=== PATIENT | female | born 1980 | race Asian ===

== ENCOUNTER 2017-01-24 13:16 | Emergency (ER) | payer OTHER ==
[~2017-01-24] VITALS: Ht 165.1 cm; Wt 102.1 kg
[2017-01-24 13:20] VITALS: TEMP 98.2
[2017-01-24 14:07] LABS: PLATELET COUNT 272 K/uL (152-353)
[2017-01-24 14:11] LABS: POTASSIUM 3.5 mmol/L (3.6-5.2); SODIUM 140 mmol/L (136-145)
[2017-01-24 16:38] VITALS: BP 142/84
== END 2017-01-24 16:38 | disposition home or self-care (01) ==
LOC: ED 13:16
DX: B34.9 Viral infection, unspecified (principal)
CPT/HCPCS: 36415; 80053; 81000; 85027; 87081; 87804; 87880; 99284

== ENCOUNTER 2017-03-11 15:00 | Emergency (ER) | payer OTHER ==
[~2017-03-11] VITALS: Ht 165.1 cm; Wt 90.7 kg
[2017-03-11 15:14] VITALS: TEMP 98.2
[2017-03-11 16:27] VITALS: BP 151/90
== END 2017-03-11 17:08 | disposition home or self-care (01) ==
LOC: ED 15:00
DX: I10 Essential (primary) hypertension (principal); R51 Headache
CPT/HCPCS: 36415; 82947; 99283

== ENCOUNTER 2017-04-25 18:37 | Emergency (ER) | payer OTHER ==
[~2017-04-25] VITALS: Ht 165.1 cm; Wt 83.9 kg
[2017-04-25 19:12] LABS: PLATELET COUNT 235 K/uL (152-353)
[2017-04-25 21:39] VITALS: BP 133/72; TEMP 98.9
== END 2017-04-25 21:40 | disposition home or self-care (01) ==
LOC: ED 18:37
DX: E87.6 Hypokalemia (principal); R74.0 Nonspecific elevation of levels of transaminase and lactic acid dehydrogenase [LDH]
CPT/HCPCS: 36415; 80053; 81000; 82150; 83690; 85027; 86318; 87081; 87804; 87880; 93005; 99283

== ENCOUNTER 2017-09-11 12:34 | Outpatient (CLI) | payer OTHER | END 2017-09-11 22:19 | disposition home or self-care (01) | LOC: LAB 12:34 → LABW 12:34 → INF 12:34 | DX: E86.0 Dehydration (principal); R74.8 Abnormal levels of other serum enzymes | CPT/HCPCS: 36591; 80074; 96360; 96361 ==

== ENCOUNTER 2017-09-18 13:57 | Outpatient (CLI) | payer OTHER | END 2017-09-18 21:56 | disposition home or self-care (01) | LOC: INF 13:57 | DX: E86.0 Dehydration (principal) | CPT/HCPCS: 96360; 96361 ==

== ENCOUNTER 2017-11-06 07:52 | Day surgery (SDC) | payer OTHER ==
[~2017-11-06] VITALS: Ht 30.5 cm; Wt 0.5 kg
[2017-11-06 08:53] LABS: PLATELET COUNT 284 K/uL (152-353)
[2017-11-06 09:01] LABS: POTASSIUM 3.8 mmol/L (3.6-5.2)
== END 2017-11-06 13:17 | disposition home or self-care (01) ==
LOC: OR 07:52
PROVIDERS: Student in an Organized Health Care Education/Training Program
PROC: 0FT44ZZ Resection of Gallbladder, Percutaneous Endoscopic Approach (ICD-10-PCS; principal; 2017-11-06)
DX: K81.1 Chronic cholecystitis (principal); R16.0 Hepatomegaly, not elsewhere classified
CPT/HCPCS: 80053; 85027; J0132; J0330; J0690; J1100; J1170; J1885; J2001; J2250; J2405; J2704; J2710; J3010; J3490

== ENCOUNTER 2017-12-10 17:50 | Observation (INO) | payer OTHER ==
[~2017-12-10] VITALS: Ht 165.1 cm; Wt 69.5 kg
[2017-12-10 18:21] VITALS: BP 140/108; TEMP 98.5; Ht 165.1 cm; Wt 69.5 kg
[2017-12-10 18:36] LABS: PLATELET COUNT 182 K/uL (152-353)
[2017-12-10 18:52] LABS: POTASSIUM 3.4 mmol/L (3.6-5.2); SODIUM 138 mmol/L (136-145)
[2017-12-10 20:00] VITALS: BP 138/93; TEMP 98.8
[2017-12-11] VITALS: BP 142/97; TEMP 98.6
[2017-12-11 04:00] VITALS: BP 116/89; TEMP 98.8
[2017-12-11 08:00] VITALS: BP 115/79; TEMP 98.4
[2017-12-11 12:00] VITALS: BP 129/94; TEMP 98.4
[2017-12-11 15:12] LABS: PLATELET COUNT 186 K/uL (152-353)
[2017-12-11 15:24] LABS: POTASSIUM 4.8 mmol/L (3.6-5.2)
[2017-12-11 16:00] VITALS: BP 147/93; TEMP 98.3
[2017-12-11 20:00] VITALS: BP 120/89; TEMP 98.7
[2017-12-12] VITALS: BP 112/75; TEMP 98.2
[2017-12-12 04:00] VITALS: BP 121/85; TEMP 98.2
[2017-12-12 04:23] LABS: PLATELET COUNT 161 K/uL (152-353)
[2017-12-12 04:35] LABS: POTASSIUM 3.7 mmol/L (3.6-5.2)
[2017-12-12 08:00] VITALS: BP 105/76; TEMP 98.4
[2017-12-12 12:00] VITALS: BP 119/80; TEMP 98.6
== END 2017-12-12 16:38 | disposition home or self-care (01) ==
LOC: MED/SURG 17:50
PROVIDERS: ADMIT Family Medicine
DX: E86.0 Dehydration (principal); N30.01 Acute cystitis with hematuria; F10.10 Alcohol abuse, uncomplicated; F10.239 Alcohol dependence with withdrawal, unspecified; N39.0 Urinary tract infection, site not specified; F32.89 Other specified depressive episodes; K70.30 Alcoholic cirrhosis of liver without ascites
CPT/HCPCS: 36415; 80053; 81000; 82248; 82550; 83735; 84100; 84484; 85027; 87040; 87088; 93005; 96360; 96361; 96367; 96374; 96375; 99220; G0378; G0379; J0696; J2060; J2405

== ENCOUNTER 2020-08-03 11:41 | Emergency (ER) | payer OTHER ==
[~2020-08-03] VITALS: Ht 165.1 cm; Wt 69.4 kg
[2020-08-03 11:45] VITALS: TEMP 98.8
[2020-08-03] MEDS ORDERED: SERT50TA PO (11:53)
[2020-08-03] MEDS ORDERED: CYPROHEPTADINE H4 MG PO (11:54)
[2020-08-03] MEDS ORDERED: HYDROXYZINE HYD25 MG PO (11:55)
[2020-08-03 12:42] LABS: POTASSIUM 4.7 mmol/L (3.6-5.2)
[2020-08-03 12:44] LABS: PLATELET COUNT 165 K/uL (152-353)
[2020-08-03 18:00] VITALS: BP 142/93
== END 2020-08-03 19:25 | disposition short-term general hospital (02) ==
LOC: ED 11:41
PROVIDERS: Family Medicine
DX: K74.69 Other cirrhosis of liver (principal); R18.8 Other ascites; Z11.52 Encounter for screening for COVID-19
CPT/HCPCS: 80053; 82150; 83690; 83735; 85027; 87635; 99284; Q9963; U0003

== ENCOUNTER 2020-11-10 13:47 | Outpatient (CLI) | payer OTHER ==
[~2020-11-10 13:47] MED LIST: CYPROHEPTADINE H4 MG PO; HYDROXYZINE HYD25 MG PO; SERT50TA PO
[2020-11-10 14:36] LABS: PARTIAL THROMBOPLASTIN TIME 38.3 SECONDS (24.5-33.6)
== END 2020-11-10 21:16 | disposition home or self-care (01) ==
LOC: US 13:47
PROVIDERS: ATTEND Nurse Practitioner Family
DX: K74.60 Unspecified cirrhosis of liver (principal); R18.8 Other ascites
CPT/HCPCS: 36415; 85610; 85730

== ENCOUNTER 2021-03-28 14:16 | Outpatient (CLI) | payer OTHER ==
[2021-03-28 14:58] LABS: POTASSIUM 4.4 mmol/L (3.6-5.2)
[2021-03-28 22:19] LABS: PARTIAL THROMBOPLASTIN TIME 69.1 SECONDS (24.5-33.6)
== END 2021-03-28 18:56 | disposition home or self-care (01) ==
LOC: LABW 14:16
PROVIDERS: ATTEND Nurse Practitioner Family
DX: K70.31 Alcoholic cirrhosis of liver with ascites (principal)
CPT/HCPCS: 80053; 82140; 85610; 85730

== ENCOUNTER 2021-05-19 11:03 | Outpatient (CLI) | payer OTHER ==
[2021-05-19 11:27] LABS: PLATELET COUNT 103 K/uL (152-353)
[2021-05-19 11:54] LABS: POTASSIUM 3.9 mmol/L (3.6-5.2)
[2021-05-19 12:29] LABS: PARTIAL THROMBOPLASTIN TIME 49.7 SECONDS (24.5-33.6)
== END 2021-05-19 19:54 | disposition home or self-care (01) ==
LOC: LAB 11:03
PROVIDERS: ATTEND Nurse Practitioner Family
DX: K70.40 Alcoholic hepatic failure without coma (principal); K70.30 Alcoholic cirrhosis of liver without ascites; F10.11 Alcohol abuse, in remission; N18.9 Chronic kidney disease, unspecified; D63.1 Anemia in chronic kidney disease
CPT/HCPCS: 80053; 82248; 83735; 85027; 85610; 85730